=== PATIENT | female | born 1995 | race Caucasian/White ===

== ENCOUNTER 2018-10-07 14:40 | Emergency (ER) | payer OTHER ==
[~2018-10-07] VITALS: Ht 162.6 cm; Wt 71.7 kg
[~2018-10-07 14:40] MED LIST: MACROBID 100 M100 MG PO; PYRIDIUM200 MG PO
== END 2018-10-07 21:12 | disposition home or self-care (01) ==
LOC: ER 14:40
DX: O21.0 Mild hyperemesis gravidarum (principal); Z3A.08 8 weeks gestation of pregnancy

== ENCOUNTER 2018-11-21 09:59 | Emergency (ER) | payer OTHER ==
[~2018-11-21] VITALS: Ht 162.6 cm; Wt 63.5 kg
== END 2018-11-21 15:34 | disposition home or self-care (01) ==
LOC: ER 09:59
DX: O26.891 Other specified pregnancy related conditions, first trimester (principal); R10.2 Pelvic and perineal pain; Z34.01 Encounter for supervision of normal first pregnancy, first trimester

== ENCOUNTER → 2019-01-22 | Outpatient (CLI) | payer OTHER | END | disposition home or self-care (01) | LOC: PRENATAL 14:00 | DX: O09.212 Supervision of pregnancy with history of pre-term labor, second trimester (principal); O35.3XX1 Maternal care for (suspected) damage to fetus from viral disease in mother, fetus 1 ==

== ENCOUNTER 2019-05-20 06:44 | Inpatient (IN) | payer OTHER ==
[~2019-05-20] VITALS: Ht 162.6 cm; Wt 80.7 kg
[2019-05-20] MEDS ORDERED: PRENATAL TABLE1 EACH PO (12:35)
== END 2019-05-22 14:09 | disposition home or self-care (01) | DRG 807 ==
LOC: OBS/DEL 06:44 → LDR 08:30 → OB/GYN 08:30 → LDR 09:17 → OB/GYN 13:05
PROVIDERS: ADMIT Obstetrics & Gynecology
PROC: 10E0XZZ Delivery of Products of Conception, External Approach (ICD-10-PCS; principal; 2019-05-20)
PROC: 10907ZC Drainage of Amniotic Fluid, Therapeutic from Products of Conception, Via Natural or Artificial Opening (ICD-10-PCS; 2019-05-20)
PROC: 4A1HXCZ Monitoring of Products of Conception, Cardiac Rate, External Approach (ICD-10-PCS; 2019-05-20)
DX: O80 Encounter for full-term uncomplicated delivery (principal); Z37.0 Single live birth; Z3A.39 39 weeks gestation of pregnancy

== ENCOUNTER 2024-02-08 15:16 | Emergency (ER) | payer OTHER ==
[~2024-02-08] VITALS: Ht 160 cm; Wt 65.8 kg
[~2024-02-08 15:16] MED LIST changes: +PRENATAL TABLE1 EACH PO
[2024-02-08 18:38] LABS: URINE APPEARANCE Clear; URINE BILIRRUBIN Negative (NEGATIVE); URINE BLOOD Negative; URINE COLOR Yellow; URINE GLUCOSE Negative (NEGATIVE); URINE KETONE Negative (NEGATIVE); URINE LEUKOCYTE Negative; URINE NITRATE Negative; URINE PROTEIN Negative (NEGATIVE)
[2024-02-08 18:40] LABS: URINE BACTERIA 1337.7 uL (0.0-1933); URINE EPITHELIAL CELLS 32.7 uL (0.0-38.8); URINE RBC 3.3 uL (0.0-20.8); URINE WBC 9.4 uL (0.0-23.2)
== END 2024-02-08 19:16 | disposition home or self-care (01) ==
LOC: EDBD 15:18 → ER 15:18
PROVIDERS: General Practice
DX: N92.6 Irregular menstruation, unspecified (principal); R10.2 Pelvic and perineal pain